=== PATIENT | male | born 1985 | race Caucasian/White ===

== ENCOUNTER 2016-10-26 09:20 | Emergency (ER) | payer OTHER ==
[2016-10-26] MEDS ORDERED: ONDANSETRON 4 MG/2 ML VIAL ONE (09:28)
[2016-10-26] MEDS ORDERED: ONDANSETRON 4 MG/2 ML VIAL IVP ONE (09:28)
[2016-10-26] MEDS ORDERED: NS 1,000 ML IV ONE (09:28)
[2016-10-26] MEDS ORDERED: TDAP ADULT 0.5 ML INJ (BOOSTRIX) IM ONE (09:29)
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
[2016-10-26] MEDS ORDERED: HYDROmorphONE/DILAUDID 1 MG/ML SYR IVP ONE ×2 (09:52→10:44)
[2016-10-26] MEDS ORDERED: HYDROmorphONE/DILAUDID 1 MG/ML SYR ONE (09:53)
[2016-10-26] MEDS ORDERED: ceFAZolin 2 GM in NS 100 ML IV ONE (10:03)
[2016-10-26 10:05] VITALS: RESP 20; TEMP 98.1
[2016-10-26 12:05] VITALS: BP 119/61; PULSE 67; O2SAT 97
--- NOTE | 2016-10-26 14:23 | GOP ---
[f rep st] OPERATIVE REPORT DATE OF OPERATION: 10/26/2016 SURGEON: Berta Gomez MD PREOPERATIVE DIAGNOSIS: Galeazzi fracture, disruption of distal radioulnar joint. POSTOPERATIVE DIAGNOSIS: Galeazzi fracture, disruption of distal radioulnar joint. PROCEDURE PERFORMED: Closed reduction of Galeazzi fracture with manipulation and finger traps, left forearm. FINDINGS: DESCRIPTION OF PROCEDURE: The patient had irrigation and debridement of the 1 mm poke hole injury o n the ulnar styloid by the emergency room. We reduced the fracture in finger traps. Out to length with finger traps. Splinted him in pronation after dressing. A sugar-tong splint in 45 degrees sup ination. Fluoroscopic films appeared to have a reasonably reduced DRUJ. Elevation. Continue splint. Follow up in my clinic for operative discussion of Galeazzi fracture. /[id number]/MODL
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
== END 2016-10-26 12:03 | disposition home or self-care (01) ==
DX: S52.37 Galeazzi's fracture (principal); F17.200 Nicotine dependence, unspecified, uncomplicated; R42 Dizziness and giddiness; Z23 Encounter for immunization; V19.9XXA Pedal cyclist (driver) (passenger) injured in unspecified traffic accident, initial encounter; Y92.410 Unspecified street and highway as the place of occurrence of the external cause; Y99.8 Other external cause status; Y93.55 Activity, bike riding
CPT/HCPCS: 96365; J0690; J1170; J2405